=== PATIENT | female | born 1950 | race Two or more races ===

== ENCOUNTER 2017-02-14 14:00 | Inpatient (IN) | payer MEDICAID ==
[~2017-02-14] VITALS: Ht 165.1 cm; Wt 87.2 kg
[2017-02-14] MEDS ORDERED: SODIUM CHLORIDE 0.9% 1,000 ML IV ONE (14:58)
[2017-02-14] MEDS ORDERED: ASPirin 81 mg TAB PO ONE (15:00)
[2017-02-14 15:41] LABS: Basophils # (auto) 0 uL; Basophils % (auto) 0.4 % (0.0-2.0); Eosinophils # (auto) 0.2 uL; Eosinophils % (auto) 1.6 % (0.0-7.0); Hematocrit 36.8 % (36.0-46.0); Hemoglobin 12.3 g/dL (12.2-16.2); Lymphocytes # (auto) 1.7 uL; Lymphocytes % (auto) 17.6 % (10.0-50.0); Mean Corpuscular Hemoglobin 29.4 pg (28.0-32.0); Mean Corpuscular Hgb Conc. 33.5 g/dL (32.0-36.0); Mean Corpuscular Volume 87.9 fL (80.0-100.0); Mean Platelet Volume 9.4 fL (7.4-10.4); Monocytes # (auto) 0.6 uL; Monocytes % (auto) 6.4 % (0.0-12.0); Neutrophils # (auto) 7.2 uL; Platelet Count (auto) 346 10^3/uL (140-450); Red Cell Distribution Width 14.2 % (11.6-16.0); White Blood Cell 9.7 10^3/uL (4.4-10.8)
[2017-02-14 15:50] LABS: Albumin 3.1 g/dL (3.4-5.0); BUN/Creatinine Ratio 15.1; Calcium 8.1 mg/dL (8.5-10.1); Magnesium 1.8 mg/dL (1.6-2.6)
[2017-02-14 16:02] LABS: INR 0.91 (0.9-1.15); Partial Thromboplastin Time 24.2 sec (22.64-33.71); Prothrombin Time 9.9 sec (9.37-12.3)
[2017-02-14 16:06] LABS: Bilirubin, Total 0.3 mg/dL (0.2-1.0); Total Protein 6.9 g/dL (6.4-8.2)
[2017-02-14] MEDS ORDERED: PROMETHAZINE HCL 25 MG/ML 1ML IV PRN (19:00)
[2017-02-14] MEDS ORDERED: LORazepam 0.5 MG TAB PO PRN (19:00)
[2017-02-14] MEDS ORDERED: LACTULOSE 20Gm/30ML SOLN PO PRN (19:00)
[2017-02-14] MEDS ORDERED: ACETAMINOPHEN 500 MG TAB PO PRN (19:00)
[2017-02-14] MEDS ORDERED: HYDROcodone-ACET 5/325MG TAB PO PRN (19:00)
[2017-02-14] MEDS ORDERED: NITROGLYCERIN 0.4 MG SL TAB SL PRN (19:00)
[2017-02-14] MEDS ORDERED: MORPHINE SULF INJ 2 MG/ML SYRINGE 1ML IV PRN ×2 (19:00)
[2017-02-14] MEDS ORDERED: DEXTROSE (50%) 50ML SYRG IV PRN (19:00)
[2017-02-14] MEDS ORDERED: TEMAZEPAM 15 MG CAP PO PRN (19:00)
[2017-02-14] MEDS: SODIUM CHLORIDE 0.9% 1,000 ML IV SCH (20:04)
[2017-02-14] MEDS ORDERED: ENOXAPARIN SOD 80 MG/0.8ML SYRINGE SC SCH (22:00)
[2017-02-14] MEDS: ACCU-CHEK COMFORT CURVE STRIP VI SCH (22:35)
[2017-02-14] MEDS: METOPROLOL TARTRATE 25 MG TAB PO SCH (22:50)
[2017-02-14] MEDS: ATORVASTATIN 20 MG TAB PO SCH (22:50)
[2017-02-14] MEDS: InsuLIN REG 1unit/0.01ml Soln (100units/ml) SC SCH (22:52)
[2017-02-15] MEDS ORDERED: ASP81EC PO (03:31)
[2017-02-15] MEDS ORDERED: LOSA50TA6 PO (03:32)
[2017-02-15] MEDS ORDERED: CLON0.2D6 PO (03:33)
[2017-02-15] MEDS ORDERED: HYDR25TA4 PO (03:34)
[2017-02-15] MEDS ORDERED: CLOP75TA41 PO (03:34)
[2017-02-15] MEDS ORDERED: METO-158 PO (03:35)
[2017-02-15] MEDS: ACCU-CHEK COMFORT CURVE STRIP VI SCH ×4 (06:42→22:00)
[2017-02-15] MEDS: InsuLIN REG 1unit/0.01ml Soln (100units/ml) SC SCH ×4 (06:46→22:00)
[2017-02-15] MEDS: SODIUM CHLORIDE 0.9% 1,000 ML IV SCH ×2 (09:44→21:29)
[2017-02-15] MEDS: METOPROLOL TARTRATE 25 MG TAB PO SCH (09:49)
[2017-02-15] MEDS: ENOXAPARIN SOD 80 MG/0.8ML SYRINGE SC SCH ×2 (09:49→22:00)
[2017-02-15] MEDS: NITROGLYCERIN 0.2MG/HR TOPICAL PATCH TD SCH (09:49)
[2017-02-15] MEDS: PANTOPRAZOLE 40 MG TAB PO SCH (09:49)
[2017-02-15] MEDS ORDERED: ASPirin 81 mg TAB PO SCH (10:00)
[2017-02-15] MEDS ORDERED: FAMOTIDINE (10MG/ML) 2ML VL IV ONE (11:45)
[2017-02-15] MEDS ORDERED: methylPREDNISolone SOD SUCC 125 MG/2 ML VL IV ONE (11:45)
[2017-02-15] MEDS ORDERED: diphenhdrAMINE HCL 50 MG/1 ML VL IV ONE (11:45)
[2017-02-15] MEDS ORDERED: ANGIOMAX 250 MG VIAL IV ONE (14:25)
[2017-02-15] MEDS ORDERED: fentaNYL CITRATE 100 MCG/2 ML VL ONE (14:25)
[2017-02-15] MEDS ORDERED: SODIUM CHL 0.9% 50 ML ONE (14:25)
[2017-02-15] MEDS ORDERED: MIDAZOLAM HCL 1MG/1ML-2 ML VIAL ONE (14:25)
[2017-02-15] MEDS ORDERED: LIDOCAINE 2%HCL (LOCAL ANESTH.) INJ 20ML MDV ONE ×2 (14:29→14:51)
[2017-02-15] MEDS ORDERED: IOHEXOL 350 MG/ML 100ML IJ ONE (14:30)
[2017-02-15] MEDS ORDERED: cloNIDine HCL 0.1 MG TAB ONE (16:09)
[2017-02-15] MEDS ORDERED: SODIUM CHLORIDE 0.9% 1,000 ML IV SCH (16:26)
[2017-02-15] MEDS ORDERED: NITROGLYCERIN 0.4 MG SL TAB SL PRN (16:30)
[2017-02-15] MEDS ORDERED: MORPHINE SULF INJ 2 MG/ML SYRINGE 1ML IV PRN ×2 (16:30)
[2017-02-15] MEDS ORDERED: LORazepam 0.5 MG TAB PO PRN (16:30)
[2017-02-15] MEDS ORDERED: ONDANSETRON HCL 4 MG/2 ML VIAL IV PRN (16:30)
[2017-02-15] MEDS ORDERED: HYDROcodone-ACET 5/325MG TAB PO PRN (16:30)
[2017-02-15] MEDS ORDERED: ACETAMINOPHEN 500 MG TAB PO PRN (16:30)
[2017-02-15] MEDS ORDERED: ZOLPIDEM TARTRATE 5 MG TAB PO PRN (16:30)
[2017-02-15] MEDS ORDERED: CLOPIDOGREL BISULFATE 75 MG TAB ONE (16:37)
[2017-02-15] MEDS ORDERED: CLOPIDOGREL BISULFATE 75 MG TAB PO ONE (16:45)
[2017-02-15] MEDS ORDERED: METOPROLOL TARTRATE 25 MG TAB ONE (18:06)
[2017-02-15] MEDS ORDERED: HCTZ 25 MG TAB ONE (18:09)
[2017-02-15] MEDS ORDERED: HCTZ 25 MG TAB PO ONE (18:15)
[2017-02-15] MEDS ORDERED: METOPROLOL SUCCINATE XL 50 MG TAB PO ONE (18:15)
[2017-02-15 19:40] VITALS: BP 159/79
[2017-02-15 20:00] VITALS: BP 159/79
[2017-02-15] MEDS: METOPROLOL TARTRATE 50 MG TAB PO SCH (22:00)
[2017-02-15] MEDS: ATORVASTATIN 20 MG TAB PO SCH (22:00)
[2017-02-15] MEDS: cloNIDine HCL 0.1 MG TAB PO SCH (22:00)
[2017-02-16] VITALS: BP 157/69
[2017-02-16 04:00] VITALS: BP 155/73
[2017-02-16] MEDS: ACCU-CHEK COMFORT CURVE STRIP VI SCH ×4 (07:00→21:39)
[2017-02-16] MEDS: InsuLIN REG 1unit/0.01ml Soln (100units/ml) SC SCH ×4 (07:00→21:41)
[2017-02-16 07:54] VITALS: BP 135/61
[2017-02-16] MEDS: ASPirin 81 mg TAB PO SCH (09:56)
[2017-02-16] MEDS: cloNIDine HCL 0.1 MG TAB PO SCH ×2 (09:56→21:38)
[2017-02-16] MEDS: ENOXAPARIN SOD 80 MG/0.8ML SYRINGE SC SCH (09:57)
[2017-02-16] MEDS: CLOPIDOGREL BISULFATE 75 MG TAB PO SCH (09:57)
[2017-02-16] MEDS: PANTOPRAZOLE 40 MG TAB PO SCH (09:57)
[2017-02-16] MEDS: METOPROLOL TARTRATE 50 MG TAB PO SCH ×2 (09:58→21:38)
[2017-02-16] MEDS ORDERED: HCTZ 25 MG TAB PO SCH (10:00)
[2017-02-16] MEDS: SODIUM CHLORIDE 0.9% 1,000 ML IV SCH (11:00)
[2017-02-16] MEDS: NITROGLYCERIN 0.2MG/HR TOPICAL PATCH TD SCH (11:15)
[2017-02-16 11:54] VITALS: BP 122/44
[2017-02-16] MEDS ORDERED: ATOR20TA50 PO (12:52)
[2017-02-16 15:54] VITALS: BP 108/43
[2017-02-16] MEDS ORDERED: DEXTROSE (50%) 50ML SYRG IV PRN (16:15)
[2017-02-16 20:00] VITALS: BP 132/60
[2017-02-16] MEDS: ATORVASTATIN 20 MG TAB PO SCH (21:36)
[2017-02-16] MEDS: INSULIN DETEMIR(LEVEMIR) 1unit/0.01ml Soln (100units/ml) SC SCH (21:51)
[2017-02-17 00:20] VITALS: BP 126/48
[2017-02-17] MEDS: SODIUM CHLORIDE 0.9% 1,000 ML IV SCH ×2 (02:26→13:29)
[2017-02-17 04:18] VITALS: BP 114/47
[2017-02-17] MEDS: ACCU-CHEK COMFORT CURVE STRIP VI SCH ×4 (05:04→22:16)
[2017-02-17 05:46] LABS: Basophils # (auto) 0.1 uL; Basophils % (auto) 0.5 % (0.0-2.0); Eosinophils # (auto) 0.2 uL; Eosinophils % (auto) 1.7 % (0.0-7.0); Hematocrit 34.2 % (36.0-46.0); Hemoglobin 11.5 g/dL (12.2-16.2); Lymphocytes # (auto) 2.4 uL; Lymphocytes % (auto) 23.2 % (10.0-50.0); Mean Corpuscular Hgb Conc. 33.5 g/dL (32.0-36.0); Mean Corpuscular Volume 89.4 fL (80.0-100.0); Monocytes # (auto) 0.6 uL; Monocytes % (auto) 5.8 % (0.0-12.0); Neutrophils # (auto) 7.2 uL; Neutrophils % (auto) 68.8 % (37.0-80.0); Platelet Count (auto) 305 10^3/uL (140-450); Red Cell Distribution Width 14.2 % (11.6-16.0); White Blood Cell 10.5 10^3/uL (4.4-10.8)
[2017-02-17] MEDS: InsuLIN REG 1unit/0.01ml Soln (100units/ml) SC SCH ×4 (05:48→22:29)
[2017-02-17 06:18] LABS: BUN/Creatinine Ratio 29.9; Potassium 3.9 mmol/L (3.5-5.1)
[2017-02-17 08:00] VITALS: BP 129/55
[2017-02-17] MEDS: ASPirin 81 mg TAB PO SCH (09:59)
[2017-02-17] MEDS: PANTOPRAZOLE 40 MG TAB PO SCH (10:00)
[2017-02-17] MEDS: CLOPIDOGREL BISULFATE 75 MG TAB PO SCH (10:00)
[2017-02-17] MEDS: METOPROLOL TARTRATE 50 MG TAB PO SCH ×2 (10:00→22:16)
[2017-02-17] MEDS: cloNIDine HCL 0.1 MG TAB PO SCH ×2 (10:00→22:16)
[2017-02-17] MEDS: NITROGLYCERIN 0.2MG/HR TOPICAL PATCH TD SCH (10:02)
[2017-02-17 12:00] VITALS: BP 125/58
[2017-02-17 16:00] VITALS: BP 129/57
[2017-02-17 20:00] VITALS: BP 155/59
[2017-02-17] MEDS: ATORVASTATIN 20 MG TAB PO SCH (22:15)
[2017-02-17] MEDS: INSULIN DETEMIR(LEVEMIR) 1unit/0.01ml Soln (100units/ml) SC SCH (22:28)
[2017-02-18] VITALS: BP 155/58
[2017-02-18 04:00] VITALS: BP 159/58
[2017-02-18] MEDS: ACCU-CHEK COMFORT CURVE STRIP VI SCH ×4 (06:45→22:00)
[2017-02-18] MEDS: InsuLIN REG 1unit/0.01ml Soln (100units/ml) SC SCH ×4 (06:46→22:00)
[2017-02-18] MEDS: SODIUM CHLORIDE 0.9% 1,000 ML IV SCH (06:46)
[2017-02-18 08:00] VITALS: BP 175/72
[2017-02-18] MEDS: cloNIDine HCL 0.1 MG TAB PO SCH ×2 (08:41→20:53)
[2017-02-18] MEDS ORDERED: INSU70IN3 SC ×2 (10:04)
[2017-02-18] MEDS: SOD CHL 0.45% 1,000 ML IV SCH (10:15)
[2017-02-18] MEDS: NITROGLYCERIN 0.2MG/HR TOPICAL PATCH TD SCH (10:23)
[2017-02-18] MEDS: ASPirin 81 mg TAB PO SCH (10:23)
[2017-02-18] MEDS: METOPROLOL TARTRATE 50 MG TAB PO SCH ×2 (10:24→20:53)
[2017-02-18] MEDS: PANTOPRAZOLE 40 MG TAB PO SCH (10:24)
[2017-02-18] MEDS: CLOPIDOGREL BISULFATE 75 MG TAB PO SCH (10:24)
[2017-02-18] MEDS ORDERED: LOSARTAN POTASSIUM 50 MG TAB PO ONE (10:30)
[2017-02-18 12:00] VITALS: BP 139/81
[2017-02-18 16:00] VITALS: BP 129/69
[2017-02-18] MEDS: INSULIN 70/30 1unit/0.01ml Susp (100units/ml) SC SCH (16:36)
[2017-02-18 19:57] VITALS: BP 138/61
[2017-02-18] MEDS: ATORVASTATIN 20 MG TAB PO SCH (20:51)
[2017-02-18] MEDS: LOSARTAN POTASSIUM 50 MG TAB PO SCH (20:52)
[2017-02-19] VITALS: BP 132/67
[2017-02-19 04:00] VITALS: BP 154/53
[2017-02-19 05:48] LABS: Basophils # (auto) 0 uL; Basophils % (auto) 0.3 % (0.0-2.0); Eosinophils # (auto) 0.3 uL; Eosinophils % (auto) 3.1 % (0.0-7.0); Hematocrit 35.5 % (36.0-46.0); Hemoglobin 11.8 g/dL (12.2-16.2); Lymphocytes # (auto) 2.1 uL; Lymphocytes % (auto) 19.2 % (10.0-50.0); Mean Corpuscular Hemoglobin 29.7 pg (28.0-32.0); Mean Corpuscular Hgb Conc. 33.2 g/dL (32.0-36.0); Mean Corpuscular Volume 89.6 fL (80.0-100.0); Mean Platelet Volume 10.3 fL (7.4-10.4); Monocytes # (auto) 0.5 uL; Neutrophils # (auto) 7.7 uL; Neutrophils % (auto) 72.4 % (37.0-80.0); Platelet Count (auto) 292 10^3/uL (140-450); Red Cell Distribution Width 13.9 % (11.6-16.0); White Blood Cell 10.7 10^3/uL (4.4-10.8)
[2017-02-19 06:03] LABS: Potassium 3.9 mmol/L (3.5-5.1)
[2017-02-19 06:09] LABS: BUN/Creatinine Ratio 20.8
[2017-02-19 06:18] LABS: Calcium 8.4 mg/dL (8.5-10.1)
[2017-02-19] MEDS: InsuLIN REG 1unit/0.01ml Soln (100units/ml) SC SCH ×4 (07:00→22:00)
[2017-02-19] MEDS: ACCU-CHEK COMFORT CURVE STRIP VI SCH ×4 (07:00→22:00)
[2017-02-19] MEDS ORDERED: LIDOCAINE 2%HCL (LOCAL ANESTH.) INJ 20ML MDV ONE (07:13)
[2017-02-19] MEDS ORDERED: IODIXANOL 320MG/ML 100ML BTL IV ONE (07:14)
[2017-02-19 08:00] VITALS: BP 139/60
[2017-02-19] MEDS: INSULIN 70/30 1unit/0.01ml Susp (100units/ml) SC SCH ×2 (08:00→18:08)
[2017-02-19] MEDS: cloNIDine HCL 0.1 MG TAB PO SCH ×2 (09:31→22:01)
[2017-02-19] MEDS: PANTOPRAZOLE 40 MG TAB PO SCH (09:31)
[2017-02-19] MEDS: CLOPIDOGREL BISULFATE 75 MG TAB PO SCH (09:32)
[2017-02-19] MEDS: LOSARTAN POTASSIUM 50 MG TAB PO SCH ×2 (09:32→22:00)
[2017-02-19] MEDS: ASPirin 81 mg TAB PO SCH (09:32)
[2017-02-19 09:33] LABS: INR 0.94 (0.9-1.15); Partial Thromboplastin Time 23.1 sec (22.64-33.71); Prothrombin Time 10.2 sec (9.37-12.3)
[2017-02-19] MEDS: METOPROLOL TARTRATE 50 MG TAB PO SCH ×2 (09:33→22:00)
[2017-02-19] MEDS ORDERED: ANGIOMAX 250 MG VIAL IV ONE (09:36)
[2017-02-19] MEDS ORDERED: SODIUM CHL 0.9% 50 ML ONE (09:36)
[2017-02-19] MEDS ORDERED: EPTIFIBATIDE INJ (2MG/ML) 10ML VIAL IV ONE (09:36)
[2017-02-19] MEDS ORDERED: MIDAZOLAM HCL 1MG/1ML-2 ML VIAL ONE (09:45)
[2017-02-19] MEDS ORDERED: fentaNYL CITRATE 100 MCG/2 ML VL ONE (09:46)
[2017-02-19] MEDS ORDERED: methylPREDNISolone SOD SUCC 125 MG/2 ML VL ONE (09:46)
[2017-02-19] MEDS ORDERED: diphenhdrAMINE HCL 50 MG/1 ML VL ONE (09:46)
[2017-02-19] MEDS ORDERED: VERAPAMIL 2.5MG/ML INJ 2ML VIAL IV ONE (09:47)
[2017-02-19] MEDS: SOD CHL 0.45% 1,000 ML IV SCH (10:00)
[2017-02-19] MEDS ORDERED: SODIUM CHL 0.9% 100 ML ONE (10:06)
[2017-02-19] MEDS ORDERED: NITROGLYCERIN 5MG/ML 10ML VIAL IV ONE (10:06)
[2017-02-19] MEDS ORDERED: HEPARIN 1,000 UNITS/ml 1ML VIAL ONE (10:13)
[2017-02-19] MEDS ORDERED: HYDROmorphone HCL 2 MG/ML VL ONE (10:22)
[2017-02-19] MEDS ORDERED: ATROPINE SULF 0.5 MG/5ML SYR ONE ×4 (10:40→10:50)
[2017-02-19] MEDS ORDERED: DOPamine 1600MCG/ML 250 ML IV ONE (10:45)
[2017-02-19 12:00] VITALS: BP 135/63
[2017-02-19] MEDS: NITROGLYCERIN 0.2MG/HR TOPICAL PATCH TD SCH (12:51)
[2017-02-19 16:00] VITALS: BP 136/62
[2017-02-19 20:00] VITALS: BP 137/44
[2017-02-19] MEDS: ATORVASTATIN 20 MG TAB PO SCH (21:57)
[2017-02-20] VITALS: BP 131/61
[2017-02-20 04:00] VITALS: BP 135/63
[2017-02-20] MEDS: ACCU-CHEK COMFORT CURVE STRIP VI SCH ×2 (06:49→11:30)
[2017-02-20] MEDS: InsuLIN REG 1unit/0.01ml Soln (100units/ml) SC SCH ×2 (06:49→11:30)
[2017-02-20 08:00] VITALS: BP 134/60
[2017-02-20] MEDS: INSULIN 70/30 1unit/0.01ml Susp (100units/ml) SC SCH (08:05)
[2017-02-20] MEDS: cloNIDine HCL 0.1 MG TAB PO SCH (09:39)
[2017-02-20] MEDS: CLOPIDOGREL BISULFATE 75 MG TAB PO SCH (09:39)
[2017-02-20] MEDS: PANTOPRAZOLE 40 MG TAB PO SCH (09:39)
[2017-02-20] MEDS: ASPirin 81 mg TAB PO SCH (09:39)
[2017-02-20] MEDS: NITROGLYCERIN 0.2MG/HR TOPICAL PATCH TD SCH (09:40)
[2017-02-20] MEDS: SOD CHL 0.45% 1,000 ML IV SCH (09:43)
[2017-02-20] MEDS: METOPROLOL TARTRATE 50 MG TAB PO SCH (10:00)
[2017-02-20] MEDS: LOSARTAN POTASSIUM 50 MG TAB PO SCH (10:00)
[2017-02-20 11:41] VITALS: BP 112/52
[2017-02-20 11:58] VITALS: BP 112/52
[2017-02-20 14:20] VITALS: BP 112/52
== END 2017-02-20 13:00 | disposition home or self-care (01) | DRG 174 ==
LOC: ER 14:00 → EDUNIT# 14:00 → EDBD 14:00 → TELE 14:01 → DOU IN ICU 02-15 19:41
PROVIDERS: ADMIT Internal Medicine; ATTEND Internal Medicine
PROC: B2111ZZ Fluoroscopy of Multiple Coronary Arteries using Low Osmolar Contrast (ICD-10-PCS; principal; 2017-02-19)
PROC: 027034Z Dilation of Coronary Artery, One Artery with Drug-eluting Intraluminal Device, Percutaneous Approach (ICD-10-PCS; 2017-02-19)
PROC: 027135Z Dilation of Coronary Artery, Two Arteries with Two Drug-eluting Intraluminal Devices, Percutaneous Approach (ICD-10-PCS; 2017-02-19)
PROC: 02713Z6 Dilation of Coronary Artery, Two Arteries, Bifurcation, Percutaneous Approach (ICD-10-PCS; 2017-02-19)
DX: I21.3 ST elevation (STEMI) myocardial infarction of unspecified site (principal); E11.65 Type 2 diabetes mellitus with hyperglycemia; I11.9 Hypertensive heart disease without heart failure; E44.1 Mild protein-calorie malnutrition; E11.9 Type 2 diabetes mellitus without complications; E78.5 Hyperlipidemia, unspecified; I25.110 Atherosclerotic heart disease of native coronary artery with unstable angina pectoris; I73.9 Peripheral vascular disease, unspecified; E66.9 Obesity, unspecified; Z86.73 Personal history of transient ischemic attack (TIA), and cerebral infarction without residual deficits; Z91.041 Radiographic dye allergy status; Z90.49 Acquired absence of other specified parts of digestive tract; Z68.32 Body mass index [BMI] 32.0-32.9, adult
CPT/HCPCS: 36415; 71010; 80048; 80053; 80307; 82550; 82962; 83036; 83735; 84443; 84484; 85025; 85379; 85610; 85652; 85730; 86141; 87081; 92928; 92929; 93005; 93458; 93923; 94761; 96361; 96372; 96374; 96375; 99152; C1874; J0461; J1815; J2250; J3490; Q9967

== ENCOUNTER 2017-07-04 09:16 | Emergency (ER) | payer OTHER, MEDICAID ==
[~2017-07-04] VITALS: Ht 165.1 cm; Wt 81.6 kg
[~2017-07-04 09:16] MED LIST: ASP81EC PO; ATOR20TA50 PO; CLON0.2D6 PO; CLOP75TA41 PO; HYDR25TA4 PO; INSU70IN3 SC; LOSA50TA6 PO; METO-158 PO
[2017-07-04] MEDS ORDERED: KETOROLAC TROMETH 60MG/2ML VIAL IM ONE (10:45)
[2017-07-04 12:05] VITALS: BP 132/60
== END 2017-07-04 12:16 | disposition home or self-care (01) ==
LOC: ER 09:16
DX: M13.852 Other specified arthritis, left hip (principal); E11.9 Type 2 diabetes mellitus without complications; E78.5 Hyperlipidemia, unspecified; I10 Essential (primary) hypertension; Z90.49 Acquired absence of other specified parts of digestive tract; Z91.041 Radiographic dye allergy status; W01.0XXA Fall on same level from slipping, tripping and stumbling without subsequent striking against object, initial encounter; Y93.89 Activity, other specified; Y99.8 Other external cause status; Y92.89 Other specified places as the place of occurrence of the external cause; Z79.82 Long term (current) use of aspirin
CPT/HCPCS: 72192; 73030; 96372; 99284; J1885

== ENCOUNTER 2017-08-05 11:03 | Emergency (ER) | payer OTHER, MEDICAID ==
[~2017-08-05] VITALS: Ht 165.1 cm; Wt 78.9 kg
[2017-08-05 12:03] LABS: Basophils # (auto) 0.1 uL; Eosinophils # (auto) 0.2 uL; Eosinophils % (auto) 1.8 % (0.0-7.0); Hematocrit 37.8 % (36.0-46.0); Hemoglobin 12.4 g/dL (12.2-16.2); Lymphocytes # (auto) 1.8 uL; Lymphocytes % (auto) 18.5 % (10.0-50.0); Mean Corpuscular Hemoglobin 29.3 pg (28.0-32.0); Mean Corpuscular Hgb Conc. 32.8 g/dL (32.0-36.0); Mean Corpuscular Volume 89.4 fL (80.0-100.0); Mean Platelet Volume 9.2 fL (6.9-10.8); Monocytes # (auto) 0.5 uL; Monocytes % (auto) 4.6 % (0.0-12.0); Neutrophils # (auto) 7.3 uL; Neutrophils % (auto) 74.1 % (37.0-80.0); Platelet Count (auto) 280 10^3/uL (140-450); Red Cell Distribution Width 14.4 % (11.8-14.3); White Blood Cell 9.9 10^3/uL (4.4-10.8)
[2017-08-05 12:12] VITALS: BP 124/61
[2017-08-05 12:26] LABS: Albumin 3.5 g/dL (3.4-5.0); Alkaline Phosphatase 122 U/L (45-117); Anion Gap 7 (5-15); Aspartate Aminotransferase 16 U/L (15-37); Bilirubin, Total 0.4 mg/dL (0.2-1.0); Blood Urea Nitrogen 12 mg/dL (7-18); Calcium 8.1 mg/dL (8.5-10.1); Carbon Dioxide 28 mmol/L (21-32); Chloride 103 mmol/L (98-107); GFR African American 100 mL/min; GFR Non-African American 82 mL/min; Glucose 222 mg/dL (74-106); Potassium 4.2 mmol/L (3.5-5.1); Sodium 138 mmol/L (136-145); Total Protein 6.6 g/dL (6.4-8.2)
== END 2017-08-05 13:55 | disposition home or self-care (01) ==
LOC: ER 11:03
DX: S46.911A Strain of unspecified muscle, fascia and tendon at shoulder and upper arm level, right arm, initial encounter (principal); E11.65 Type 2 diabetes mellitus with hyperglycemia; R10.9 Unspecified abdominal pain; I10 Essential (primary) hypertension; I25.10 Atherosclerotic heart disease of native coronary artery without angina pectoris; I25.2 Old myocardial infarction; E78.5 Hyperlipidemia, unspecified; Z86.73 Personal history of transient ischemic attack (TIA), and cerebral infarction without residual deficits; Z90.49 Acquired absence of other specified parts of digestive tract; Z91.041 Radiographic dye allergy status; Z79.4 Long term (current) use of insulin; Z79.82 Long term (current) use of aspirin
CPT/HCPCS: 36415; 80053; 82962; 83690; 83735; 84484; 85025; 93005

== ENCOUNTER 2019-03-07 17:36 | Emergency (ER) | payer OTHER, MEDICAID ==
[~2019-03-07] VITALS: Ht 165.1 cm; Wt 77.6 kg
[~2019-03-07 17:36] MED LIST changes: +LOSA-46 PO; -LOSA50TA6 PO
[2019-03-07] MEDS ORDERED: cloNIDine HCL 0.1 MG TAB PO ONE (18:45)
[2019-03-07 19:14] LABS: Basophils # (auto) 0.1 uL; Basophils % (auto) 0.9 % (0.0-2.0); Eosinophils # (auto) 0.2 uL; Eosinophils % (auto) 1.5 % (0.0-7.0); Hematocrit 42.2 % (36.0-46.0); Lymphocytes # (auto) 1.8 uL; Lymphocytes % (auto) 17.3 % (10.0-50.0); Mean Corpuscular Hemoglobin 29.8 pg (28.0-32.0); Mean Corpuscular Hgb Conc. 33.3 g/dL (32.0-36.0); Mean Corpuscular Volume 89.6 fL (80.0-100.0); Monocytes # (auto) 0.6 uL; Monocytes % (auto) 5.3 % (0.0-12.0); Neutrophils # (auto) 7.8 uL; Platelet Count (auto) 259 10^3/uL (140-450); Red Cell Distribution Width 14.1 % (11.8-14.3); White Blood Cell 10.4 10^3/uL (4.4-10.8)
[2019-03-07 19:33] LABS: Albumin 3.9 g/dL (3.4-5.0); Anion Gap 8 (5-15); Blood Urea Nitrogen 11 mg/dL (7-18); Calcium 8.9 mg/dL (8.5-10.1); Carbon Dioxide 30 mmol/L (21-32); Chloride 101 mmol/L (98-107); Glucose 130 mg/dL (74-106); Magnesium 1.9 mg/dL (1.6-2.6); Potassium 3.3 mmol/L (3.5-5.1); Sodium 139 mmol/L (136-145)
[2019-03-07 19:35] LABS: BUN/Creatinine Ratio 13.9; GFR African American 94 mL/min; GFR Non-African American 77 mL/min
[2019-03-07 19:40] LABS: Alanine Aminotransferase 27 U/L (13-56); Alkaline Phosphatase 127 U/L (45-117); Aspartate Aminotransferase 15 U/L (15-37); Bilirubin, Total 0.4 mg/dL (0.2-1.0); Total Protein 7.9 g/dL (6.4-8.2)
[2019-03-07 20:09] LABS: INR < 0.93 (0.9-1.15); Partial Thromboplastin Time 23.5 sec (23.64-32.05)
[2019-03-07 20:46] LABS: Urine Bacteria NONE SEEN /hpf (None Seen); Urine Blood Negative /uL (Negative); Urine Mucus FEW (None Seen); Urine Specific Gravity 1.008 (1.001-1.035); Urine WBC 2 /hpf (0 - 5)
[2019-03-07] MEDS ORDERED: POTASSIUM CHL 20 Meq TABLET PO ONE (22:00)
[2019-03-07 22:57] VITALS: BP 139/58
[2019-03-07] MEDS ORDERED: MECLIZINE HCL 25 MG TAB PO ONE (23:30)
[2019-03-07] MEDS ORDERED: ONDANSETRON ODT 4 MG TAB PO ONE (23:45)
== END 2019-03-08 00:44 | disposition left against medical advice (07) ==
LOC: ER 17:36
DX: I10 Essential (primary) hypertension (principal); R42 Dizziness and giddiness; E11.9 Type 2 diabetes mellitus without complications; E78.5 Hyperlipidemia, unspecified; I25.2 Old myocardial infarction; Z86.73 Personal history of transient ischemic attack (TIA), and cerebral infarction without residual deficits; Z91.14 Patient's other noncompliance with medication regimen; Z90.49 Acquired absence of other specified parts of digestive tract; Z98.61 Coronary angioplasty status; Z91.041 Radiographic dye allergy status; Z79.82 Long term (current) use of aspirin; Z79.4 Long term (current) use of insulin; Z79.899 Other long term (current) drug therapy
CPT/HCPCS: 36415; 70450; 71045; 80053; 81001; 82962; 83735; 83880; 84484; 85025; 85379; 85610; 85730; 93005; 94761; 99284; J8597; Q0162

== ENCOUNTER 2021-02-21 08:23 | Emergency (ER) | payer OTHER, MEDICAID ==
[~2021-02-21 08:23] MED LIST changes: -ASP81EC PO; +ASPI-394 PO; -CLOP75TA41 PO; +CLOP75TA70 PO; -LOSA-46 PO; +LOSA-69 PO
[2021-02-21 08:39] VITALS: BP 159/89
[2021-02-21] MEDS ORDERED: METHOCARBAMOL 500 MG TAB PO ONE (09:45)
[2021-02-21] MEDS ORDERED: ACETAMINOPHEN 500 MG TAB PO ONE (09:45)
== END 2021-02-21 11:03 | disposition home or self-care (01) ==
LOC: ER 08:23
DX: M19.012 Primary osteoarthritis, left shoulder (principal); M19.011 Primary osteoarthritis, right shoulder; M54.5 Low back pain; I10 Essential (primary) hypertension; I25.2 Old myocardial infarction; I25.10 Atherosclerotic heart disease of native coronary artery without angina pectoris; E11.9 Type 2 diabetes mellitus without complications; E78.5 Hyperlipidemia, unspecified; Z90.49 Acquired absence of other specified parts of digestive tract; Z79.4 Long term (current) use of insulin; Z79.82 Long term (current) use of aspirin; Z79.899 Other long term (current) drug therapy; Z88.8 Allergy status to other drugs, medicaments and biological substances; W01.0XXA Fall on same level from slipping, tripping and stumbling without subsequent striking against object, initial encounter; Y93.89 Activity, other specified; Y92.89 Other specified places as the place of occurrence of the external cause; Y99.8 Other external cause status
CPT/HCPCS: 70450; 72100; 73000